=== PATIENT | female | born 1955 | race Caucasian/White ===

== ENCOUNTER → 2017-09-16 | Outpatient (REF) | payer SELFPAY | LOC: M LAB REF 16:49 | DX: N84.1 Polyp of cervix uteri (principal) | CPT/HCPCS: 88305 ==

== ENCOUNTER → 2018-11-24 | Outpatient (CLI) | payer MEDICARE ==
--- NOTE | 2018-11-24 11:24 | REP ---
Chest two views HISTORY: Chronic cough Comparison: None The lungs are hyperinflated. An increase in interstitial markings is present in the lungs. The heart is normal in size. The pulmonary vasculature is normal in appearance. The bony structure is intact. IMPRESSION: There is an increase in interstitial markings in the lungs. It cannot be determined if this is acute or chronic as previous films are not available for comparison. This may represent an acute process such as acute interstitial pneumonitis or a chronic process such as chronic interstitial fibrosis. Previous films would be helpful for further evaluation. Electronically Signed by Brett Peñaloza MD 11/24/2018 11:14 A
== END ==
LOC: M RAD 10:23
PROVIDERS: ATTEND Family Medicine
DX: R91.8 Other nonspecific abnormal finding of lung field (principal); R05 Cough